=== PATIENT | male | born 2000 | race Hispanic/Latino ===

== ENCOUNTER 2021-02-11 09:44 | Emergency (ER) | payer SELFPAY ==
[2021-02-11] MEDS ORDERED: PHENOL 177 ML BOTTLE PO SCH (10:30)
== END 2021-02-11 11:05 | disposition home or self-care (01) ==
LOC: EDH 09:44
DX: J06.0 Acute laryngopharyngitis (principal)
CPT/HCPCS: 99282

== ENCOUNTER 2021-05-28 15:56 | Emergency (ER) | payer OTHER ==
[~2021-05-28] VITALS: Ht 180.3 cm; Wt 77.6 kg
[2021-05-28 15:58] VITALS: BP 119/67
[2021-05-28] MEDS ORDERED: LIDOCAINE HCL-MPF 1% 2ML VIAL ONE (18:51)
[2021-05-28] MEDS ORDERED: SULF1TAB42 PO (18:55)
[2021-05-28] MEDS ORDERED: IBUP-2070 PO (18:55)
[2021-05-28] MEDS ORDERED: CEPH500T PO (18:55)
[2021-05-28] MEDS ORDERED: MUPI22O TP (18:55)
[2021-05-28] MEDS ORDERED: CEFTRIAXONE 1G VIAL IM ONE (19:00)
[2021-05-28] MEDS ORDERED: KETOROLAC 30MG VIAL (30MG/ML) IM ONE (19:00)
[2021-05-28 19:06] VITALS: BP 135/74
== END 2021-05-28 19:08 | disposition home or self-care (01) ==
LOC: EDH 15:56
DX: L03.116 Cellulitis of left lower limb (principal); F41.9 Anxiety disorder, unspecified; F32.9 Major depressive disorder, single episode, unspecified; Z79.899 Other long term (current) drug therapy
CPT/HCPCS: 87070; 87076; 87077; 87186; 96372 ×2; 99284; J0696; J1885; J3490